=== PATIENT | male | born 1990 | race Caucasian/White ===

== ENCOUNTER 2016-12-13 15:56 | Emergency (ER) | payer OTHER ==
[~2016-12-13] VITALS: Ht 180.3 cm; Wt 70.3 kg
[~2016-12-13 15:56] MED LIST: BACTROBAN15 GM TOP; VIBRAMYCIN100 MG PO
--- NOTE | 2016-12-13 17:01 | ED GENERAL ADULT ---
History of Present Illness General Chief Complaint: Psychiatric Related Complaint Stated Complaint: PER PT I NEED A FULL WORKUP, AND PSYCH EVAL Source: patient Exam Limitations: poor historian Vital Signs & Intake/Output Vital Signs & Intake/Output Vital Signs Date Time Temp Pulse Resp B/P Pulse O2 O2 Flow FiO2 Ox Delivery Rate 12/13 2039 98.4 80 16 118/72 98 Room Air 12/13 1921 Room Air 12/13 1845 98.5 76 16 120/80 98 Room Air 12/13 1612 97.9 85 18 111/69 98 Room Air ED Intake and Output 12/14 0000 12/13 1200 Intake Total 200 Output Total Balance 200 Intake, Oral 200 Patient 155 lb Weight Allergies Coded Allergies: No Known Allergies (03/20/16) Triage Note: PRESENTS TO ED REQUESTING PSYCHIATRIC EVALAUTION DUE TO BIPOLAR DISORDER. REPORTS NON COMPLIANCE WITH MEDICATIONS. NO SPECIFIC SYMPTOMALOGY OFFERED DESPITE ASKING HIM SEVERAL TIMES. DENIED SI/HI. Triage Nurses Notes Reviewed? yes Onset: Abrupt Duration: day(s): Timing: recent history HPI: 12/13/16 26-year-old man presents to the emergency department for exacerbation of bipolar disorder. The patient states that he has history of bipolar disorder and has been off his medications. He also has generalized body aches and has been walking long distances. He denies suicidal ideation. He does admit to memory lapses. The onset of the symptoms were abrupt, the duration is unknown, the severity is significant as his symptoms required him to come to the emergency department for care. (KETAN HUANG DO) Past History Travel History Traveled to [place] past 21 day No Medical History Any Pertinent Medical History? see below for history Psychiatric: anxiety, bipolar disease Surgical History Surgical History: non-contributory Psychosocial History What is your primary language German Tobacco Use: Never used Family History Hx Contributory? No (KETAN HUANG DO) Review of Systems Review of Systems Constitutional: Denies: fever. EENTM: Reports: no symptoms. Respiratory: Reports: no symptoms. Cardiovascular: Reports: no symptoms. GI: Reports: no symptoms. Genitourinary: Reports: no symptoms. Musculoskeletal: Reports: see HPI. Skin: Denies: see HPI. Neurological/Psychological: Reports: anxiety. Hematologic/Endocrine: Denies: bruising (LEGS). (KETAN HUANG DO) Physical Exam Physical Exam General Appearance: alert, awake, anxious, moderate distress Head: atraumatic, normal appearance Eyes: Bilateral: normal appearance, PERRL, EOMI. Ears, Nose, Throat: normal pharynx, normal ENT inspection Neck: normal inspection, supple Respiratory: normal breath sounds, chest non-tender, no respiratory distress Cardiovascular: regular rate/rhythm Peripheral Pulses: 4+ radial (R), 4+ radial (L) Gastrointestinal: non-tender Back: normal range of motion Extremities: normal range of motion Neurologic/Psych: no motor/sensory deficits, awake, alert, oriented x 3 Skin: intact, normal color, warm/dry, ecchymosis (LEGS) Core Measures ACS in differential dx? No CVA/TIA Diagnosis: No Severe Sepsis Present: No Septic Shock Present: No (KETAN HUANG DO) Progress Differential Diagnoses I considered the following diagnoses in my evaluation of the patient: [ Laceration of bipolar disorder, substance abuse, alcohol intoxication, cocaine abuse] Plan of Care: Labs were sent and a sitter was ordered. Crisis consultation was requested. The patient was signed out to Dr. Jonas at 7 PM Initial ED EKG: none (KETAN HUANG DO) Comments: 12/13/162229: Patient is awake alert and oriented 3. Patient is calm and cooperative. Patient states that he wants to go home. Patient is not suicidal or homicidal. Patient states that he has just been feeling manic and that he usually does heroin after using cocaine because the parent Marcos come down from the cocaine however when he used heroin last time it did not help. Patient denies any hallucinations. Patient does not have pressured speech. Patient lives with his mother and his stepfather. Patient is going to call his mother to come in. If his mother has no concerns for his safety as well and she feels comfortable taking him home and the patient will be discharged. Mother is at his bedside and has no concerns about taking him tonight. (NALINI JONAS MD) Departure Departure Condition: Stable Clinical Impression Primary Impression: Bipolar disorder Referrals: UNKNOWN (PCP/Family) Departure Forms: Customer Survey General Discharge Information (KETAN HUANG DO) Departure Disposition: HOME OR SELF CARE Additional Instructions: Return if symptoms worsen or for any concerns. (NALINI JONAS MD) Critical Care Note Critical Care Note Critical Care Time: 30-74 min (KETAN HUANG DO)
[2016-12-13 19:16] LABS: ABSOLUTE BASOPHIL COUNT 0.1 /CUMM (0.0-0.2); ABSOLUTE EOSINOPHIL COUNT 0.1 /CUMM (0.0-0.7); ABSOLUTE GRANULOCYTE CT 5.1 /CUMM (1.4-6.5); ABSOLUTE LYMPH COUNT 1.3 /CUMM (1.2-3.4); ABSOLUTE MONOCYTE COUNT 0.6 /CUMM (0.10-0.60); BASOPHIL % 0.8 % (0.0-2.0); EOSINOPHIL % 0.8 % (0-5); GRANULOCYTE % 71.3 % (42.2-75.2); HEMATOCRIT 42.5 % (42-52); MEAN CORPUSCULAR HGB 28.7 PG (27.0-31.0); MEAN CORPUSCULAR HGB CONC 33.3 G/DL (33.0-37.0); MEAN CORPUSCULAR VOLUME 86.3 FL (80.0-94.0); MEAN PLATELET VOLUME 7.5 FL (7.4-10.4); PLATELET COUNT 280 /CUMM (130-400); RBC DISTRIBUTION WIDTH 12.7 % (11.5-14.5); RED BLOOD CELL CT 4.93 /CUMM (4.70-6.10); WHITE BLOOD CELL COUNT 7.2 /CUMM (4.8-10.8)
[2016-12-13 20:40] VITALS: BP 118/72
== END 2016-12-13 23:46 ==
LOC: ERH 15:56
PROVIDERS: Emergency Medicine
DX: F31.9 Bipolar disorder, unspecified (principal)
CPT/HCPCS: 86618; 80307; G0480

== ENCOUNTER 2017-01-01 02:30 | Inpatient (IN) | payer OTHER ==
[~2017-01-01] VITALS: Ht 175.3 cm; Wt 64.9 kg
--- NOTE | 2017-01-01 02:42 | ED AMS/SEIZURE/WEAK/DIZZY ---
History of Present Illness General Chief Complaint: Psychiatric Related Complaint Stated Complaint: BIBA PSY EVALUATION Source: patient, EMS, police Exam Limitations: clinical condition Vital Signs & Intake/Output Vital Signs & Intake/Output Vital Signs Date Time Temp Pulse Resp B/P Pulse O2 O2 Flow FiO2 Ox Delivery Rate 01/01 1405 97.2 60 116/84 01/01 1355 97.2 60 114/84 01/01 1253 98.0 75 14 144/91 96 Room Air 01/01 0632 97.2 95 18 148/89 98 Room Air 01/01 0433 97.2 99 18 156/92 98 Room Air 01/01 0248 Room Air 01/01 0243 97.4 118 22 171/100 98 Room Air Allergies Coded Allergies: No Known Allergies (03/20/16) Triage Nurses Notes Reviewed? yes Onset: Gradual Duration: hour(s):, waxing and waning Timing: recent history Injury Environment: home Severity: moderate Modifying Factors: Improves With: rest. Associated Symptoms: agitation HPI: 26-year-old gentleman history of bipolar disorder, not presently taking any medications, presents with agitation, belligerence, and threatening behavior tonight. He was brought in by the police. Per the police, he had a verbal altercation with his mother. He "trashed" his entire room. He affirms that he had a conflict with his mother. He expresses dismay around his, "deadbeat dad in [place]." He notes that he feels his mother has been agitating him, and has been demanding. He shares that he inhaled 1 bag of heroin and also did cocaine tonight. He notes that he took psychiatric medications in the past but stopped, "because those medicines currently are creatively." He presently denies suicidality and homicidality or hallucinations. (JA WALLACE,CYRIL Dean) Reconcile Medications No Known Home Medications (SUMI WALLACE,NALINI Gil) Past History Travel History Traveled to [place] past 21 day No Medical History Any Pertinent Medical History? see below for history Psychiatric: anxiety, bipolar disease Surgical History Surgical History: non-contributory Psychosocial History What is your primary language Welsh Family History Hx Contributory? No (JA WALLACE,CYRIL Dean) Review of Systems Review of Systems Constitutional: Reports: no symptoms. EENTM: Reports: no symptoms. Respiratory: Reports: no symptoms. Cardiovascular: Reports: no symptoms. GI: Reports: no symptoms. Genitourinary: Reports: no symptoms. Musculoskeletal: Reports: no symptoms. Skin: Reports: no symptoms. Neurological/Psychological: Reports: no symptoms. Hematologic/Endocrine: Reports: no symptoms. Immunologic/Allergic: Reports: no symptoms. All Other Systems: Reviewed and Negative (JA WALLACE,CYRIL Dean) Physical Exam Physical Exam General Appearance: well developed/nourished, alert, awake, anxious, mild distress, thin Head: atraumatic, normal appearance Eyes: Bilateral: normal appearance. Ears, Nose, Throat: normal pharynx, normal ENT inspection Neck: normal inspection, supple, full range of motion Respiratory: normal breath sounds, chest non-tender, no respiratory distress, quiet respiration, lungs clear Cardiovascular: regular rate/rhythm Gastrointestinal: normal bowel sounds, soft, non-tender Back: normal inspection Extremities: normal range of motion Neurologic/Psych: no motor/sensory deficits, awake, alert, oriented x 3 Skin: intact, normal color, warm/dry Core Measures ACS in differential dx? No CVA/TIA Diagnosis: No Severe Sepsis Present: No Septic Shock Present: No (JA WALLACE,CYRIL Dean) Progress Differential Diagnosis: alcohol intoxication, drug intoxication, electrolyte imbalance, depression, anxiety, bipolar disorder Plan of Care: Orders Procedure Date/time Status THYROID STIMULATING HORMONE 01/02 0700 Active LIPID PANEL 01/02 0700 Active GLYCOSYLATED HGB 01/02 0700 Active CBC WITHOUT DIFFERENTIAL 01/02 0700 Active Regular Diet 01/01 L Active INPT Psych Sitter 01/01 1404 Active Vital Signs 01/01 1403 Active Inpt Psych Teach/Educate 01/01 1403 Active Nutritional Intake, Monitor 01/01 1403 Active Inpt Psych Auricular Acupunctu 01/01 1403 Active Admit to inpatient psych 01/01 1330 Active Patient Data - inpatient psych 01/01 0952 Active Admit to inpatient psych 01/01 0952 Active EKG 01/01 0952 Active Intake & Output 01/01 0335 Complete Continuous Observation Monitor 01/01 0243 Active URINE DRUG SCREEN FOR ER ONLY 01/01 0243 Complete ETHANOL 01/01 0243 Complete COMPREHENSIVE METABOLIC PANEL 01/01 0243 Complete CBC WITHOUT DIFFERENTIAL 01/01 0243 Complete ED CRISIS PSYCH CONSULT 01/01 0243 Active Vital Signs 01/01 UNK Complete Inpt Psych Opioid Withdrawal S 01/01 UNK Active Activity/Ambulation 01/01 UNK Complete Current Medications Sig/Tejal Start time Last Medication Dose Stop Time Status Admin Olanzapine 5 MG DAILY 01/02 1000 AC (ZYDIS (Orally disintegrating tabs)) Olanzapine 10 MG AT BEDTIME 01/01 2200 AC (ZYDIS (Orally disintegrating tabs)) Lorazepam 1 MG Q4P PRN 01/01 1315 AC (Ativan) Olanzapine 5 MG Q4 HRS NEEDED PRN 01/01 1315 AC (ZYDIS (Orally disintegrating tabs)) Clonidine 0.1 MG Q6PRN PRN 01/01 1000 AC (Catapres) Dicyclomine HCl 20 MG Q6PRN PRN 01/01 1000 AC (Bentyl) Hydroxyzine HCl 50 MG TID PRN 01/01 1000 AC (Atarax) Ibuprofen 600 MG Q6P PRN 01/01 1000 AC (Motrin) Loperamide HCl 2 MG Q6P PRN 01/01 1000 AC (Imodium) Trazodone HCl 50 MG AT BEDTIME NEED.. 01/01 1000 AC (Desyrel) Laboratory Tests 01/01/17 0520: Urine Opiates Screen > 4000.00 H, Methadone Screen < 40, Barbiturate Screen 73, Ur Phencyclidine Scrn < 6.00, Amphetamines Screen < 100, U Benzodiazepines Scrn < 85, Urine Cocaine Screen > 1000 H, Urine Cannabis Screen > 80.00 H 01/01/17 0308: Anion Gap 12, Estimated GFR > 60, BUN/Creatinine Ratio 11.0, Glucose 140 H, Calcium 9.7, Total Bilirubin 0.7, AST 44, ALT 39, Alkaline Phosphatase 107, Total Protein 7.8, Albumin 4.6, Globulin 3.2, Albumin/Globulin Ratio 1.4, CBC w Diff MAN DIFF ORDERED, RBC 5.10, MCV 84.6, MCH 28.5, RDW 11.8, MPV 7.2 L, Gran % 58.9, Lymphocytes % 32.9, Monocytes % 7.3, Eosinophils % 0.6, Basophils % 0.3, Absolute Granulocytes 6.5, Segmented Neutrophils 60, Absolute Lymphocytes 3.7 H , Lymphocytes 35, Monocytes 5, Absolute Monocytes 0.8 H, Absolute Eosinophils 0.1, Absolute Basophils 0, Platelet Estimate ADEQUATE, Normocytic RBCs VERIFIED, Normochromic RBCs VERIFIED, PUBS MCHC 33.7, Serum Alcohol < 10.0 Initial ED EKG: none Hand-Off Endorsed To: NALINI JONAS MD Endorsed Time: 0700 Pending: consult (JA WALLACE,CYRIL Dean) Comments: PT SEEN AND EVALUATED BY CRISIS. PT TO BE ADMITTED TO [facility]. PT VERY AGITATED. PT MEDICATED WITH IM ZYPREXA AND IM ATIVAN. (NALINI JONAS MD) Departure Departure Disposition: STILL A PATIENT Condition: Stable Clinical Impression Primary Impression: Bipolar disorder Secondary Impressions: Polysubstance abuse Referrals: UNKNOWN (PCP/Family) Departure Forms: Customer Survey General Discharge Information (JA WALLACE,CYRIL Dean) Departure Prescriptions: Current Visit Scripts No Known Home Medications Psych Admission Note Psychiatric Admission: I have seen and evaluated ROLANDO SHEETS. I have also reviewed all the pertinent lab results and diagnostic results. ROLANDO SHEETS will be admitted to our inpatient Psychiatric unit for treatment and care. (NALINI JONAS MD)
[2017-01-01 03:20] LABS: ABSOLUTE BASOPHIL COUNT 0 /CUMM (0.0-0.2); ABSOLUTE EOSINOPHIL COUNT 0.1 /CUMM (0.0-0.7); ABSOLUTE GRANULOCYTE CT 6.5 /CUMM (1.4-6.5); ABSOLUTE LYMPH COUNT 3.7 /CUMM (1.2-3.4); ABSOLUTE MONOCYTE COUNT 0.8 /CUMM (0.10-0.60); BASOPHIL % 0.3 % (0.0-2.0); EOSINOPHIL % 0.6 % (0-5); GRANULOCYTE % 58.9 % (42.2-75.2); HEMATOCRIT 43.2 % (42-52); MEAN CORPUSCULAR HGB 28.5 PG (27.0-31.0); MEAN CORPUSCULAR HGB CONC 33.7 G/DL (33.0-37.0); MEAN CORPUSCULAR VOLUME 84.6 FL (80.0-94.0); MEAN PLATELET VOLUME 7.2 FL (7.4-10.4); PLATELET COUNT 360 /CUMM (130-400); RBC DISTRIBUTION WIDTH 11.8 % (11.5-14.5); WHITE BLOOD CELL COUNT 11.1 /CUMM (4.8-10.8)
--- NOTE | 2017-01-01 10:32 | ED PSYCH CRISIS CONSULTATION ---
Crisis Consult Basic Assessment Date of Consult: 01/01/17 Responsible Person/Accompanied By: FRED on PEER Insurance Authorization: Insurance #1: Insurance name: EJ LUCAS Phone number: Policy number: [id number] Group number: Authorization number: ED Provider: Patient's ED Provider: CYRIL PERES MD Primary Care Physician: Patient's PCP: UNKNOWN PCP's Phone Number: Current Psychiatrist: Patient denies, states he only sees his PCP Dr. Jason Uriarte Chief Complaint: Psychiatric Related Complaint Patient's Quote: "Not me, my mom comes up with lies." Present Illness: The patient is a 26 year old, single, male brought to the ED, by ambulance, on a PEER. The patient presents anxious, fidgety with extreme mood lability, ranging from laughing, to crying, to screaming, to staring blankly. The patient has a long history of mental health issues and subsequent treatment, however is not currently in any treatment. He states that he has not been compliant with medications or treatment because "they don't work and they make it feel like he is ." He states that when he takes medications, that he is not able to "be creative." He endorses, paranoia, visual hallucinations, auditory hallucinations, and ideas of reference. He states that all of these things "are gifts from God," and that they were given to him. He does not find his symptoms to be worrisome and in fact states "he recently made friends with the demons that he sees. He denies any current or history of suicidal ideations. He denies any homicidal ideations, however then states that he wants to kill his biological father, and "if it were legal in [place]," that he would do it. He resides with his mother and is currently not working. He was preoccupied with that amount of time he has been sleeping while here, as he likes it better when he does not sleep, noting "it gives him more energy." He routinely uses Cocaine, Heroin and Cannabis, however does not see this to be abuse. He states that he does not need any treatment and he does not want to be in the hospital. He would like to go home and continue to experience his hallucinations. Riccardo spoke with his mother, Vika Combs ([phone]), who states that she called the police last night because he was out of control. She notes that he was "screaming and barricading himself in his room. Vika states that he has been paranoid and responding to internal stimuli. She notes that he talks about the "cars lining up outside" and that "they are talking to him through the speakers." She notes that he has been off of his medications, but she does not know for how long. Vika is not clear on the trigger for his symptoms, however did note that the patient has been having issues with his biological father. Vika elaborated on the mental health issues that are prominent on both sides of the family. She does believe that he needs to be hospitalized at his time and would like him to go to [facility]. Patient's Address: [address] [place] [address] Other Phone Number: Who Do You Live With? Mother (and her ex-) Family/Informants Interviewed: Mother- Vika Todd- [phone] Allergies - Coded Allergies: No Known Allergies (03/20/16) Current Medications - No Known Home Medications Laboratory Results: Laboratory Tests 01/01/17 0520: Urine Opiates Screen > 4000.00 H, Methadone Screen < 40, Barbiturate Screen 73, Ur Phencyclidine Scrn < 6.00, Amphetamines Screen < 100, U Benzodiazepines Scrn < 85, Urine Cocaine Screen > 1000 H, Urine Cannabis Screen > 80.00 H 01/01/17 0308: Anion Gap 12, Estimated GFR > 60, BUN/Creatinine Ratio 11.0, Glucose 140 H, Calcium 9.7, Total Bilirubin 0.7, AST 44, ALT 39, Alkaline Phosphatase 107, Total Protein 7.8, Albumin 4.6, Globulin 3.2, Albumin/Globulin Ratio 1.4, CBC w Diff MAN DIFF ORDERED, RBC 5.10, MCV 84.6, MCH 28.5, RDW 11.8, MPV 7.2 L, Gran % 58.9, Lymphocytes % 32.9, Monocytes % 7.3, Eosinophils % 0.6, Basophils % 0.3, Absolute Granulocytes 6.5, Segmented Neutrophils 60, Absolute Lymphocytes 3.7 H , Lymphocytes 35, Monocytes 5, Absolute Monocytes 0.8 H, Absolute Eosinophils 0.1, Absolute Basophils 0, Platelet Estimate ADEQUATE, Normocytic RBCs VERIFIED, Normochromic RBCs VERIFIED, PUBS MCHC 33.7, Serum Alcohol < 10.0 Past History Past Medical History Psychiatric: anxiety, bipolar disease Past Surgical History Surgical History: non-contributory Psychosocial History Strengths/Capabilities: The patient has a supportive mother and stable living. Physical Limitations (Interventions): During the evaluation, the patient was complaining of muscle cramps, Dr. Chu was made aware. Psychiatric Treatment History Psych Treatment Psychiatric Treatment Yes Inpatient Treatment Yes Outpatient Treatment Yes Location of Treatment [facility]. Reason for Treatment Bipolar and psychosis Dates of Treatment Unclear- per report of his mother- thepatient did not elaborate. Response to Treatment The patient states that he did not like treatment or medications, as "he is not able to be as creative." He states he has tried multiple medications and that nothing has worked. Diagnosis by History: Per mother " paranoid schizophrenic, Bipolar and PTSD" Substance Use/Abuse History Drug Use/Abuse 1 Substances Used/Abused Yes Substance Used/Abused Marijuana First Use 15 years old Last Used "last night" How much used/taken Unclear How often Reports daily use For how long Unclear Route of use inhalation Drug Use/Abuse 2 Substances Used/Abused Yes Substance Used/Abused Heroin First Use 21 years old Last Used "Last night" How much used/taken "1/2 a bag" How often "every two or three weeks" For how long Unclear Route of use Unclear Drug Use/Abuse 3 Substances Used/Abused Yes Substance Used/Abused Cocaine First Use 19 years old Last Used "last night" How much used/taken unclear How often "its random" For how long Unclear Route of use Inhalation Substance Abuse Treatment Substance Abuse Treatment Past Substance Abuse [place] No (Pt. denies) Inpatient Treatment No Outpatient Treatment No Location of Treatment N/A Reason for Treatment N/A Dates of Treatment N/A Response to Treatment N/A Comments: The patient states that he has attended [facility] in the past, however denies curently attending. Current Mental Status Mental Status Orientation: Person, Place, Situation Affect: Anxious, Angry, Labile Speech: WNL (Labile, yelling at times) Neuro-vegetative: Sleep Disturbance Appearance Appearance- Dress/Hygiene: The patient was moving around the room, in hospital scrubs, neat, clean and well kempt, wearing glasses. Behaviors Thought Process: Flight of Ideas, Irrational Thought Content: Auditory Hallucinations, Delusions, Entitled, Grandiose, Paranoid, Adventist, Visual Hallucinations Memory: WNL Insight: Poor SI/HI Risk Assessment Past Suicidal Ideation/Attempts No Current Suicidal Ideation/Att No Past Homicidal Ideation/Att: No Current Homicidal Ideation/Attempts Yes Degree of Intent: The patient states that "he would kill his biological father, if it were legal in [place]." Danger To: Others Gravely Disabled: Lack of Insight, Poor Impulse Control, Poor Judgment, Experiencing symptoms of Psychosis. Risk Factors: high anxiety/distress, SA/MH hospitalized, substance abuse, poor impulse control, male, Medication and treatment non-compliant Lethality Ratin PTSD Checklist PTSD Done? 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 R/O Bipolar Disorder with Psychotic features. Medical: Unremarkable Stressors: Financial, unemployment, family issues Current GAF: 25 Comments: N/A Departure Disposition Psych Medical Clearance Date: 01/01/17 Medically Cleared at: 0800 Time Started: 0815 Time Ended: 929 Psychiatrist Consulted: Dr. Rodriges Date Disposition Established: 01/01/17 Time Disposition Established: 929 Plan for Disposition - Modality: Inpatient Psychiatry Facility: [facility] Contact: N/A Telephone: N/A Rationale for Disposition: The patient presents with auditory hallucinations, visual hallucinations, ideas of reference, mood lability, ideas of grandeur, homicidal ideations and polysubstance abuse. Case discussed with Dr. Rodriges and she finds the patient to be gravely disabled and will admit him to [facility] on a PEC. Type of IP Admission: PEC Additional Instructions: N/A Referrals UNKNOWN (PCP/Family)
--- NOTE | 2017-01-01 10:48 | IP CRISIS DIAG ASSESS PSYCH ---
Diagnostic Assessment Basic Assessment Insurance Authorization: Insurance #1: Insurance name: EJ LUCAS Phone number: Policy number: [id number] Group number: Authorization number: Authorization was requested through online [facility] portal and is listed as "pended." Pended Authorization # [id number] Client Authorization # [id number] Type of request INITIAL Primary Care Physician: Patient's PCP: UNKNOWN PCP's Phone Number: Patient's Quote: "Not me, my mom comes up with lies." Present Illness: The patient is a 26 year old, single, male brought to the ED, by ambulance, on a PEER. The patient presents anxious, fidgety with extreme mood lability, ranging from laughing, to crying, to screaming, to staring blankly. The patient has a long history of mental health issues and subsequent treatment, however is not currently in any treatment. He states that he has not been compliant with medications or treatment because "they don't work and they make it feel like he is ." He states that when he takes medications, that he is not able to "be creative." He endorses, paranoia, visual hallucinations, auditory hallucinations, and ideas of reference. He states that all of these things "are gifts from God," and that they were given to him. He does not find his symptoms to be worrisome and in fact states "he recently made friends with the demons that he sees. He denies any current or history of suicidal ideations. He denies any homicidal ideations, however then states that he wants to kill his biological father, and "if it were legal in [place]," that he would do it. He resides with his mother and is currently not working. He was preoccupied with that amount of time he has been sleeping while here, as he likes it better when he does not sleep, noting "it gives him more energy." He routinely uses Cocaine, Heroin and Cannabis, however does not see this to be abuse. He states that he does not need any treatment and he does not want to be in the hospital. He would like to go home and continue to experience his hallucinations. Riccardo spoke with his mother, Vika Combs ([phone]), who states that she called the police last night because he was out of control. She notes that he was "screaming and barricading himself in his room. Vika states that he has been paranoid and responding to internal stimuli. She notes that he talks about the "cars lining up outside" and that "they are talking to him through the speakers." She notes that he has been off of his medications, but she does not know for how long. Vika is not clear on the trigger for his symptoms, however did note that the patient has been having issues with his biological father. Vika elaborated on the mental health issues that are prominent on both sides of the family. She does believe that he needs to be hospitalized at his time and would like him to go to [facility]. Patient's Address: [address] [place] [address] Other Phone Number: Who Do You Live With? Mother (and her ex-) Feel Safe Where You Live? Yes Feel Safe in Your Relationship Yes (Denies being in a relationship) Marital Status: single Do You Have Children? No Primary Language? Brazilian Family/Informants Interviewed: Mother- Vika Combs- [phone] Allergies - Coded Allergies: No Known Allergies (03/20/16) Current Medications - No Known Home Medications Consequences of Psych Med Use: The patient reports that when he takes his medications, that he is not able to be as creative, as he would like to be. He states that no medications have worked for him and that "he feels ," when he takes them. Comment: N/A Lab Results: Laboratory Tests 01/01/17 0520: Urine Opiates Screen > 4000.00 H, Methadone Screen < 40, Barbiturate Screen 73, Ur Phencyclidine Scrn < 6.00, Amphetamines Screen < 100, U Benzodiazepines Scrn < 85, Urine Cocaine Screen > 1000 H, Urine Cannabis Screen > 80.00 H 01/01/17 0308: Anion Gap 12, Estimated GFR > 60, BUN/Creatinine Ratio 11.0, Glucose 140 H, Calcium 9.7, Total Bilirubin 0.7, AST 44, ALT 39, Alkaline Phosphatase 107, Total Protein 7.8, Albumin 4.6, Globulin 3.2, Albumin/Globulin Ratio 1.4, CBC w Diff MAN DIFF ORDERED, RBC 5.10, MCV 84.6, MCH 28.5, RDW 11.8, MPV 7.2 L, Gran % 58.9, Lymphocytes % 32.9, Monocytes % 7.3, Eosinophils % 0.6, Basophils % 0.3, Absolute Granulocytes 6.5, Segmented Neutrophils 60, Absolute Lymphocytes 3.7 H , Lymphocytes 35, Monocytes 5, Absolute Monocytes 0.8 H, Absolute Eosinophils 0.1, Absolute Basophils 0, Platelet Estimate ADEQUATE, Normocytic RBCs VERIFIED, Normochromic RBCs VERIFIED, PUBS MCHC 33.7, Serum Alcohol < 10.0 Toxicology Screen Completed? Yes Results: positive (Cannabis, Cocaine and Opiates) Symptoms of Use: N /A Past History Past Medical History Medical History: None/Denies Abuse/Trauma History Trauma History/Current Trauma: The patient was unable to particpate secondary to current symptoms and lability. Abuse/Trauma Treatment: Unknown Legal History Current Legal Status: The patient states that he has a current court date, next month. Have you ever been arrested? Yes Number of Arrests: [address] Dates: The patient states that he has an upcoming court date next month. 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 Physical Limitations (Interventions): During the evaluation, the patient was complaining of muscle cramps, Dr. Chu was made aware. Psychiatric Treatment History Psych Treatment Psychiatric Treatment Yes Inpatient Treatment Yes Outpatient Treatment Yes Location of Treatment [facility]. Reason for Treatment Bipolar and psychosis Dates of Treatment Unclear- per report of his mother- thepatient did not elaborate. Response to Treatment The patient states that he did not like treatment or medications, as "he is not able to be as creative." He states he has tried multiple medications and that nothing has worked. Diagnosis by History: Per mother " paranoid schizophrenic, Bipolar and PTSD" Risk Factors: high anxiety/distress, SA/MH hospitalized, substance abuse, poor impulse control, male, Medication and treatment non-compliant Substance Use/Abuse History Drug Use/Abuse minimum 12mo Hx 1 Substances Used/Abused Yes Substance Used/Abused Cocaine First Use 19 years old Last Used "last night" How much used/taken unclear How often "its random" For how long Unclear Route of use Inhalation Drug Use/Abuse minimum 12mo Hx 2 Substances Used/Abused Yes Substance Used/Abused Heroin First Use 21 years old Last Used "last night" How much used/taken "1/2 a bag" How often "every two or three weeks" For how long Unclear Route of use Unclear Drug Use/Abuse minimum 12mo Hx 3 Substances Used/Abused Yes Substance Used/Abused Marijuana First Use 15 years old Last Used "last night" How much used/taken Unclear How often Reports daily use For how long Unclear Route of use Inhalation Substance Abuse Treatment Substance Abuse Treatment Past Substance Abuse [place] No (Pt. denies) Inpatient Treatment No Outpatient Treatment No Location of Treatment N/A Reason for Treatment N/A Dates of Treatment N/A Response to Treatment N/A Comments: N/A Sexual History Sexually Active No Sexual Orientation Heterosexual Sexual Concerns: None noted Education History Highest Level of Education: high school/GED Preferred Learning Style: Unclear Current Mental Status Mental Status Orientation: Person, Place, Situation Affect: Anxious, Angry, Labile Speech: WNL (Labile, yelling at times) Neuro-vegetative: Sleep Disturbance Appearance Appearance- Dress/Hygiene: The patient was moving around the room, in hospital scrubs, neat, clean and well kempt, wearing glasses. Behaviors Thought Process: Flight of Ideas, Irrational Thought Content: Auditory Hallucinations, Delusions, Entitled, Grandiose, Paranoid, Yazdanism, Visual Hallucinations Memory: WNL Insight: Poor SI/HI Risk Assessment - Minimum 6mo History- Past Suicidal Ideation/Attempts No Current Suicidal Ideation/Att No Past Homicidal Ideation/Att: No Current Homicidal Ideation/Attempts Yes Degree of Intent: The patient states that "he would kill his biological father, if it were legal in [place]." Danger To: Others Gravely Disabled: Lack of Insight, Poor Impulse Control, Poor Judgment, Experiencing symptoms of Psychosis. Risk Factors: high anxiety/distress, SA/MH hospitalized, substance abuse, poor impulse control, male, Medication and treatment non-compliant Lethality Ratin Needs/Init TX Plan/Goals: Admit to inpatient for safety and to stabilize symptoms. Attend individual, group and family therapy. Participate in a medication evaluation. Work with treatment team to transition to care in the community. AUDIT-C Questionnaire: AUDIT-C Questionnaire: Response Value ETOH use in the past year Never 0 # drinks typical/day Doesn't Drink 0 6 or > drinks per occasion Never 0 Total 0 DSM5/PS Stressors/Medical Prob Diagnosis' (DSM 5, Stressors, Medical): F29 Unspecified Schizophrenia Spectrum and other Psychotic Disorder. R/O Bipolar Disorder with Psychotic features. Medical: Unremarkable Stressors: Financial, unemployment, family issues Current GAF: 25 Comments: N/A
--- NOTE | 2017-01-01 11:47 | SOCIAL WORKER SOCIAL HX PSYCH ---
Social History Basic Assessment Insurance Authorization: Insurance #1: Insurance name: EJ LUCAS Phone number: Policy number: [id number] Group number: Authorization number: Curr Source of Income/Entitlements: "[facility] Man and the state" Primary Care Physician: Patient's PCP: UNKNOWN PCP's Phone Number: Present Problem: The patient is a 26 year old, single, male brought to the ED, by ambulance, on a PEER. The patient presents anxious, fidgety with extreme mood lability, ranging from laughing, to crying, to screaming, to staring blankly. The patient has a long history of mental health issues and subsequent treatment, however is not currently in any treatment. He states that he has not been compliant with medications or treatment because "they don't work and they make it feel like he is ." He states that when he takes medications, that he is not able to "be creative." He endorses, paranoia, visual hallucinations, auditory hallucinations, and ideas of reference. He states that all of these things "are gifts from God," and that they were given to him. He does not find his symptoms to be worrisome and in fact states "he recently made friends with the demons that he sees. He denies any current or history of suicidal ideations. He denies any homicidal ideations, however then states that he wants to kill his biological father, and "if it were legal in [place]," that he would do it. He resides with his mother and is currently not working. He was preoccupied with that amount of time he has been sleeping while here, as he likes it better when he does not sleep, noting "it gives him more energy." He routinely uses Cocaine, Heroin and Cannabis, however does not see this to be abuse. He states that he does not need any treatment and he does not want to be in the hospital. He would like to go home and continue to experience his hallucinations. Riccardo spoke with his mother, Vika Combs ([phone]), who states that she called the police last night because he was out of control. She notes that he was "screaming and barricading himself in his room. Vika states that he has been paranoid and responding to internal stimuli. She notes that he talks about the "cars lining up outside" and that "they are talking to him through the speakers." She notes that he has been off of his medications, but she does not know for how long. Vika is not clear on the trigger for his symptoms, however did note that the patient has been having issues with his biological father. Vika elaborated on the mental health issues that are prominent on both sides of the family. She does believe that he needs to be hospitalized at his time and would like him to go to [facility]. Primary Language? Turkish Living Situation Rents or Owns Home? rents Other Living Arrangement: He lives with his mother and her ex- in an apartment. Residential Care/Treatment Fac N/A Feel Safe Where You Are Living Yes Feel Safe in Relationships? Yes (Denies being in a relationship) Comments: N/A Allergies - Coded Allergies: No Known Allergies (03/20/16) Current Medications - No Known Home Medications Consequences of Psych Med Use: N/A Comments: N/A Past History Past Medical History Psychiatric: anxiety, bipolar disease Past Surgical History Surgical History: non-contributory /Family History Place/Country of Origin: [place] Childhood Family Constellation: The patients was primarily raised by his mother, she left his biogical father in [place]. Per his mother she lived with his grandmother, until she met her ex- , and then they lived with him. Of note, she is , however the 3 of them still reside togther. Primary Childhood Caretakers: mother Family Life During Childhood: "awesome" DCF Involvement? No Mother's Age (Current/): 0 (Unknown) Relationship w/Mother: " I love my mom, she is my best friend." Father's Age (Current/): 0 (Unknown) Relationship w/Father: " I want to kill him and I would if it were legal in [place]." Any Sibling(s)? Yes ("1 half brother") Sibling's Gender(s)/Age(s): male Sibling 1: Relationship w/Sibling(s): The patient states that he does not have a relationship with his half brother. Relationship w/Friends: The patient states that he only has aquaintances. Family Psych/Sub Abuse/Add Hx: Per mother, there are mental health issues on both sides of the family. Other Comments: N/A Abuse/Trauma History Trauma History/Current Trauma: The patient was unable to particpate secondary to current symptoms and lability. Abuse/Trauma Treatment: Unknown Legal History Legal Guardian/Address/Phone: Self Current Legal Status: Pending court date Pending Court Dates: Pending court date next month for " Heroin charge" Have you ever been arrested Yes Number of Arrests: 5 Hx of Juvenile Legal Charges? No (Unknown) Hx of Adult Legal Charges? Yes If Yes: The patient reports being arrested 5 times, however does not elaborate on for what, except to say his most recent charge is related to Heroin. List/Date Most Recent Lgl Chgs: He states that his most recent arrest, was for Heroin. Chgs/Dts/Incarcerations/Sentnc The patient reports that he has been arrested 5 times. He does not elaborate on reasons for arrest, except to say his most recent arrest was Heroin related. 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 Weaknesses: The patient has limited insight into his mental health issues and his need for treatment. Physical Limitations (Interventions): During the evaluation, the patient was complaining of muscle cramps, Dr. Chu was made aware. Last Physical: Unknown History of Seizures? No (Pt. denies) History of Blackouts? No (Pt. denies) ADL Limitations: None noted Leon/Social/Peer Relations The patient states that he only has acquaintances. Meaningful Activities: "Go for a walk away from people." Childhood Mandaeism: no sikhism stated Current Druze Affiliation: no sikhism stated Is Spirituality Important to You? Unknown, however the patient did talk about his symptoms of pyschosis, "being a gift from God." Cultural/Ethnic Issues: None noted Are There Developmental Issues? No (Unknown) Milestones Achieved: Unknown Psychiatric Treatment History Psych Treatment Inpatient Treatment Yes Outpatient Treatment Yes Location of Treatment [facility]. Reason for Treatment Bipolar and psychosis Dates of Treatment Unclear- per report of his mother- thepatient did not elaborate. Response to Treatment The patient states that he did not like treatment or medications, as "he is not able to be as creative." He states he has tried multiple medications and that nothing has worked. Current Entertainer Or Variety Artist: None Treatment of Prior Episodes: Per mother he has a history of being admitted to [facility], [facility]. Diagnosis: Per mother " paranoid schizophrenic, Bipolar and PTSD" Psychodynamic Issues: Per his mother, there are multiple family members that also struggle with mental health issues. Risk Factors: high anxiety/distress, SA/MH hospitalized, substance abuse, poor impulse control, male, Medication and treatment non-compliant Substance Use/Abuse History Drug Use/Abuse 1 Substance Used/Abused Marijuana First Use 15 years old Last Used "last night" How much used/taken Unclear How often Reports daily use For how long Unclear Route of use Inhalation Drug Use/Abuse 2 Substance Used/Abused Heroin First Use 21 years old Last Used "last night" How much used/taken "1/2 a bag" How often "every two or three weeks" For how long Unknown Route of use Unknown Drug Use/Abuse 3 Substance Used/Abused Crack Cocaine First Use 19 years old Last Used "last night" How much used/taken Unclear How often "it's random" For how long Unclear Route of use Unclear Have Had Periods of Sobriety? No Explain: The patient reports that he has used marijuna daily "for his whole life." Relapse History? Yes Explain: The patient reports continuous use and does not believe that it is an issue. Have You Ever Attended AA? Yes Do You Attend AA Currently? No Do You Have a Sponsor? No Other Community Resources Used: None noted Symptoms of Use: N /A Substance Abuse Treatment Substance Abuse Treatment Inpatient Treatment No Outpatient Treatment No Location of Treatment N/A Reason for Treatment N/A Dates of Treatment N/A Response to Treatment N/A Comments: N/A Sexual History Sexually Active No Sexual Orientation Heterosexual Sexual Concerns: None noted Education History Highest Level of Education: high school/GED Highest Grade Completed: Obtained his GED Vocational Year Completed: N/A Number of College Years: 0 College Degree/Major: N/A Other Degree(s): N/A Preferred Learning Style: Unclear HX of Learning Difficulties: None reported Barriers to Learning: None reported Special Communication Needs: None reported Employment History Employment Unemployed Not in Labor Force: Looking for employment Vocation/Occupational Hx: The patient does not recall- "maybe something with driving" No. of Jobs in Last 5 Years: 0 (Unclear) Attendance: Unclear Comments: The patient states that he does not remember what his last job was. He states that maybe he would like to be a Chiropracter or a Massage Therapist. History Have You Been in The ? No (Pt. denies) If Yes, Explain: N/A Type of Discharge: N/A Date of Discharge: N/A Current Mental Status Mental Status Orientation: Person, Place, Situation Affect: Anxious, Angry, Labile Speech: WNL (Labile, yelling at times) Neuro-vegetative: Sleep Disturbance Appearance Appearance- Dress/Hygiene: The patient was moving around the room, in hospital scrubs, neat, clean and well kempt, wearing glasses. Behaviors Thought Process: Flight of Ideas, Irrational Thought Content: Auditory Hallucinations, Delusions, Entitled, Grandiose, Paranoid, Druze, Visual Hallucinations Memory: WNL Insight: Poor SI/HI Risk Assessment Past Suicidal Ideation/Attempts No Current Suicidal Ideation/Att No Past Homicidal Ideation/Att: No Current Homicidal Ideation/Attempts Yes Degree of Intent: The patient states that "he would kill his biological father, if it were legal in [place]." Danger To: Others Gravely Disabled: Lack of Insight, Poor Impulse Control, Poor Judgment, Experiencing symptoms of Psychosis. Risk Factors: High Anxiety/Distress, SA/MH Hospitalization(s), Male, Poor impulse control, Substance Abuse Lethality Ratin - Conclusion and Recommendations for treatment - and discharge planning Summary: The patient presents with auditory hallucinations, visual hallucinations, ideas of reference, mood lability, ideas of grandeur, homicidal ideations and polysubstance abuse. Case discussed with Dr. Rodriges and she finds the patient to be gravely disabled and will admit him to [facility] on a PEC.
[2017-01-01 13:55] VITALS: BP 114/84
[2017-01-01 14:05] VITALS: BP 116/84
--- NOTE | 2017-01-01 14:06 | Event Note ---
Event Note Event Note: Pt arrived at [facility] this afternoon. He was quiet with no behavioral distrubance. Uncooperative, pretending to sleep, when asked questions for assessment. Sitting with head down on chair. Declined offer to be moved to room to lay in bed. MSE Appears younger stated age. Unooperative behavior, no eye contact. Pt declined to speak. + psychomotor retardation, no posturing. Mood "OK" Affect irritable, constricted, inappropriate, non-liable. Unable to assess thought process. Did not express SI or HI. Does not appear to be responding to internal stimuli. Denies AVHs, paranoia, or delusions. I/J: limited Zyprexa 5mg daily and 10mg nightly ordered Zyprexa and ativan PRNs ordered as very agitated earlier in the day Trazodone and Hydroxyzine PRNs ordered CBC ordered as elevated WBC on last blooddraw, A1C, Lipids ordered for AM as pt will be on antipsychotic medications. EKG ordered as well
[2017-01-02 06:32] LABS: ABSOLUTE BASOPHIL COUNT 0 /CUMM (0.0-0.2); ABSOLUTE EOSINOPHIL COUNT 0.1 /CUMM (0.0-0.7); ABSOLUTE GRANULOCYTE CT 6.6 /CUMM (1.4-6.5); ABSOLUTE LYMPH COUNT 1.8 /CUMM (1.2-3.4); ABSOLUTE MONOCYTE COUNT 0.5 /CUMM (0.10-0.60); BASOPHIL % 0.3 % (0.0-2.0); EOSINOPHIL % 1.1 % (0-5); GRANULOCYTE % 72.5 % (42.2-75.2); MEAN CORPUSCULAR HGB 28.5 PG (27.0-31.0); MEAN CORPUSCULAR HGB CONC 33.2 G/DL (33.0-37.0); MEAN PLATELET VOLUME 7.4 FL (7.4-10.4); PLATELET COUNT 356 /CUMM (130-400); RBC DISTRIBUTION WIDTH 12.4 % (11.5-14.5); RED BLOOD CELL CT 5.82 /CUMM (4.70-6.10); WHITE BLOOD CELL COUNT 9.1 /CUMM (4.8-10.8)
[2017-01-02 06:37] LABS: HEMATOCRIT 50.1 % (42-52)
[2017-01-02 07:46] VITALS: BP 126/77
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
--- NOTE | 2017-01-02 11:29 | Cons- Medical ---
General Information and HPI Consulting Request Date of Consult: 01/01/17 Requested By: BIENVENIDO ANNE MD Reason for Consult: Medical H & P Source of Information: patient, old records History of Present Illness: 26-year-old male with past medical history of polysubstance abuse and psychiatric disorder who is here with psychiatric complaints. He is not very cooperative on exam. He responds with monosyllables and very little information. He denies any active medical problems. He denies any active medical complaints. No chest pain no shortness of breath no cough no sputum no complaints. He says that he uses drugs inhalation daily and intranasally and has never used them intravenously. He is open to the idea of testing for HIV and hepatitis. Allergies/Medications Allergies: Coded Allergies: No Known Allergies (03/20/16) Home Med List: Gabapentin 300 MG CAPSULE 300 MG PO TID ANXIETY Hydroxyzine HCl 50 MG TABLET 50 MG PO TID PRN ANXIETY Nicotine (Nicotine Patch) 21 MG/24 HOUR PATCH.TD24 21 MG TOP DAILY SMOKING CESSATION Olanzapine (Zyprexa Zydis) 10 MG TAB.RAPDIS 10 MG PO AT BEDTIME CLEAR THOUGHTS Olanzapine (Zyprexa Zydis) 5 MG TAB.RAPDIS 5 MG PO DAILY CLEAR THOUGHTS Trazodone HCl 50 MG TABLET 50 MG PO AT BEDTIME PRN SLEEP Current Medications: Current Medications Sig/Tejal Start time Last Medication Dose Route Stop Time Status Admin Clonidine 0.1 MG Q6PRN PRN 01/01 1000 AC PO Dicyclomine HCl 20 MG Q6PRN PRN 01/01 1000 AC PO Gabapentin 300 MG Q8P PRN 01/02 1100 AC PO Hydroxyzine HCl 50 MG TID PRN 01/01 1000 AC PO Ibuprofen 600 MG Q6P PRN 01/01 1000 AC PO Loperamide HCl 2 MG Q6P PRN 01/01 1000 AC PO Lorazepam 1 MG Q4P PRN 01/01 1315 DC 01/02 PO 0626 Lorazepam 1 MG Q6-PRN PRN 01/01 1000 DC PO Nicotine 2 MG Q2P PRN 01/02 1115 AC PO Nicotine 21 MG DAILY 01/02 1106 AC TOP Olanzapine 5 MG DAILY 01/02 1000 AC 01/02 PO 0823 Olanzapine 10 MG AT BEDTIME 01/01 2200 AC PO Olanzapine 5 MG Q4 HRS NEEDED PRN 01/01 1315 AC PO Olanzapine 5 MG BID 01/01 1000 DC PO Olanzapine 5 MG BID PRN 01/01 1000 DC PO Trazodone HCl 50 MG AT BEDTIME NEED.. 01/01 1000 AC PO Review of Systems Review of Systems Constitutional: Denies: no symptoms, chills, diaphoresis, fever, malaise. Cardiovascular: Denies: chest pain, edema, orthopena. Respiratory: Denies: cough, hemoptysis, orthopnea. GI: Denies: abdominal pain, bloating, constipation. Genitourinary: Denies: discharge, dysuria, frequency. Musculoskeletal: Denies: back pain, joint pain. 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 Home Smoking Status: Current Everyday Smoker ETOH Use: denies use Illicit Drug Use: cocaine, heroin (Intranasal) Functional Ability ADLs Independent: dressing, eating, toileting, bathing. Ambulation: independent IADLs Independent: shopping, housework, finances, food prep, telephone. Employment History Employment: Unemployed Profession/Employer: The patient does not recall- "maybe something with driving " Exam & Diagnostic Data Last 24 Hrs of Vital Signs/I&O Vital Signs Date Time Temp Pulse Resp B/P Pulse O2 O2 Flow FiO2 Ox Delivery Rate 01/02 0746 97.0 108 126/77 01/01 1405 97.2 60 116/84 01/01 1355 97.2 60 114/01/01 1253 98.0 75 14 144/91 96 Room Air Physical Exam General Appearance: well developed/nourished, no apparent distress, alert, awake Head: atraumatic, normal appearance Eyes: Bilateral: PERRL, EOMI. Ears, Nose, Throat: normal pharynx, normal ENT inspection, hearing grossly normal Neck: normal inspection, supple, full range of motion Respiratory: normal breath sounds, chest non-tender, no respiratory distress Cardiovascular: regular rate/rhythm Gastrointestinal: normal bowel sounds, soft, non-tender, no organomegaly Back: normal inspection, normal range of motion Extremities: normal inspection, normal capillary refill, normal range of motion, no edema Neurologic/Psych: no motor/sensory deficits, awake, oriented x 3, normal mood/ affect, projection printer II-XII nml as tested Skin: intact, normal color, warm/dry Last 24 Hrs of Labs/Andrew: Laboratory Tests 01/02/1710: Hemoglobin A1c Pending 01/02/1710: Triglycerides 107, Cholesterol 170, LDL Cholesterol, Calc 100, HDL Cholesterol 49, Cholesterol/HDL Ratio 3, TSH 0.693, CBC w Diff NO MAN DIFF REQ, RBC 5.82, MCV 86.0, MCH 28.5, RDW 12.4, MPV 7.4, Gran % 72.5, Lymphocytes % 20.2 L, Monocytes % 5.9, Eosinophils % 1.1, Basophils % 0.3, Absolute Granulocytes 6.6 H, Absolute Lymphocytes 1.8, Absolute Monocytes 0.5, Absolute Eosinophils 0.1, Absolute Basophils 0, PUBS MCHC 33.2 Assessment/Plan Assessment/Plan 26-year-old male with polysubstance abuse including heroin and cocaine and active tobacco use. He is here with psychiatric complaints. He is open to the idea of HIV testing and hepatitis testing so I will order an HIV panel and hepatitis panel for the a.m. I spoke to him at length about tobacco cessation but he doesn't want to contemplate giving up now. He says that he understands that he needs to have a primary and will follow up with the primary care physicain on discharge for outpatient medical follow-up. Given the cocaine in the urine, do not use beta blockers and follow closely. Problem List: 1. Bipolar disorder 2. Polysubstance abuse Consult Acknowledgment - Thank you for your consult request.
[2017-01-02 12:21] VITALS: BP 134/65
[2017-01-02 16:23] VITALS: BP 138/82
[2017-01-02 19:49] VITALS: BP 138/88
[2017-01-03 07:40] VITALS: BP 146/85
[2017-01-03 12:12] VITALS: BP 122/76
--- NOTE | 2017-01-03 14:27 | SOCIAL WORKER TX PLAN PSYCH ---
Treatment Plan - Please Document: - Evidence that there is ongoing collaboration between - the patient and the interdisciplinary team, - including the patient's active participation and - responsibility for engaging in the treatment regimen, - and that the treatment plan is individualized and - relevant to the patient's conditions. - Treatment plan should reflect documentation indicating - that all active therapeutic efforts are included. Strengths/Capabilities: The patient has a supportive mother and stable living. Physical Limitations (Interventions): During the evaluation, the patient was complaining of muscle cramps, Dr. Chu was made aware. Patient Identified Trmt Goals: "I need to organize my thoughts and get home." Discharge Plan: IOP Problem/Goals #1 Problem #1: Yue Goal (Short Term): Explore feelings and thoughts about self, his or her own abilities, and future plans. Explore mood state, level of energy, level of control over thoughts, and sleeping pattern. Refer for psychiatric evaluation for medication need, and to assess hospitalization need to stabilize mood and energy. Monitor taking of psychotropic medications as directed. Encourage trust in the therapy relationship by sharing fears about dependency, loss, and abandonment. Accomplish mood stability, having slower reaction with anger, less expansive, and being more socially appropriate and sensitive. Encourage expression of grief, fear, and anger regarding real or imagined losses in life. Differ between real and imagined losses, rejections, and abandonment. Accept the level of low self esteem and fear of rejection that underlies the behavior. Identify and list the causes for the low self esteem and abandonment fears. Learn to be less agitated and distracted, and be able to sit quietly and calmly for 30 minutes. Agree to sleep about 5 hours or more per night. Increase control over thoughts and a slower thinking process. Increase ability to stay focused on a single activity to completion. Increase an understanding that behavior and judgment are under poor control during manic phase or episode. Increase acceptance of the need for ongoing supportive treatment and medication to reduce or eliminate destructive, manic swings. Goal (Homeworker): Lower level of psychic energy and return to normal activity levels. Increase good judgment, stable mood, and goal directed behavior. Reduce agitation, impulsivity, and pressured speech Increase sensitivity to the consequences of behavior and having more realistic expectations. Explore underlying feelings of guilt, fears of rejection, low self esteem, dependency, and abandonment. Accomplish controlled behavior, moderated mood, and thought process through psychotherapy and medication. Interventions: Reinforce impulse control by using role playing, behavioral rehearsal, or role reversal to increase sensitivity to negative consequences of behavior. Listen carefully for expressions of hostility while setting limits on aggressive or impulsive behavior. Place limits on any manipulation or acting out behavior, by making clear rules and establishing clear consequences for breaking rules. Allow for structure to focus the patient's thoughts and actions, and, by regulating the direction of conversation and setting plans for behavior. Reinforce slower speech and more careful focused thought process. Modalities: Encourage groups, education on mood stabalization, provide CBT treatment, family meeting. DSM5/PS Stressors/Medical Prob Diagnosis' (DSM 5, Stressors, Medical): F29 Unspecified Schizophrenia Spectrum and other Psychotic Disorder. R/O Bipolar Disorder with Psychotic features. Medical: Unremarkable Stressors: Financial, unemployment, family issues Current GAF: 25 Treatment Team - Responsibilities of members of the treatment team include: - Medication Management- MD or WASTE WATER OR WATER PLANT OPERATOR - Medication Administration and Monitoring- Nurse - Group Therapy- Occupational Therapist - 1:1 Therapy,Disch Planning,family involvement-Payroll Bookkeeper
[2017-01-03] MEDS ORDERED: ZYPREXA ZYDIS PO (15:03)
[2017-01-03] MEDS ORDERED: NICOTINE PATCH1 EAC3 TOP (15:03)
[2017-01-03] MEDS ORDERED: TRAZODONE HCL50 M1 PO (15:03)
[2017-01-03] MEDS ORDERED: ZYPREXA ZYDIS5 M1 PO (15:03)
[2017-01-03] MEDS ORDERED: GABAPENTIN300 M2 PO (15:03)
[2017-01-03] MEDS ORDERED: HYDROXYZINE HCL50 M1 PO (15:03)
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
--- NOTE | 2017-01-03 15:32 | SOCIAL WORKER PROG NOTE PSYCH ---
Social Work Progress Note Progress Note Patient to discharge the hospital today. This underwriter mortgage loan met with patient for the first time today. Patient presented generally calm, logical and oriented to person place situation. Patient shared about his step fathers this past weekend and the desire to return home to be with his mother and prepare for the wake/. Patient denied any thoughts to hurt himself or others and reported that he recognizes the need to continue on Zyprexa. Patient reports that he has been on Zyprexa in the past for long periods of time and did find it beneficial. He reports experiencing calmer thoughts and rational thinking when on Zyprexa. Patient has agreed to continue on Zyprexa and will attend [facility]. Together we called patients mother, Vika Combs, who confirmed that she would like patient to return home this evening as family is coming in to town tomorrow for his step fathers wake. Patient does report continued auditory/visual hallucinations but reports that he has experienced these throughout his entire life and does not find them harmful and they are not command in nature. Patient denies SI/HI at present and has intake at [facility] on Tuesday01/05/17 @ 10:15am.
--- NOTE | 2017-01-03 15:44 | DISCHARGE SUMMARY REPORT-PSYCH ---
Visit Information Visit Dates/Diagnosis' Admission Date: 01/01/17 Discharge Date: 01/03/17 Reason for Admission: Patient brought to the ED, by ambulance, on a PEER. The patient presented as anxious, fidgety with extreme mood lability, ranging from laughing, to crying, to screaming, to staring blankly. The patient has a long history of mental health issues and subsequent treatment, however is not currently in any treatment. Psy Discharge Primary Diag: Bipolar Disorder Psy Discharge Secondary Diag: Polysubstance abuse, had been in remission for 4 months, recently restarted prior to admission. Hospital Course Significant Lab Findings: Lab TSH 0.693 uIU/mL 01/02/17 0610 HIV 1&2 Ab Western Blot NONREACTIVE 01/03/17 0624 Urine Cannabis Screen > 80.00 NG/ML H 01/01/17 0520 Urine Cocaine Screen > 1000 NG/ML H 01/01/17 0520 Urine Opiates Screen > 4000.00 NG/ML H 01/01/17 0520 Course Complications: None. Consultations: Patient was seen for admission History and Physical by Dr. Cespedes. Please refer to her note for additional information. Allergies: Coded Allergies: No Known Allergies (03/20/16) Hospital Course/TX Response: The patient was monitored on the unit for safety, mood stability, and polysubstance withdrawal. He participated in multi-modal treatments on the unit. He was medicated with olanzapine for clear thoughts and mood stability, trazodone at bedtime for sleep. Today, the day of discharge, was my first time meeting with the patient. I met the patient along with social studies department chair Anna. Patient presents as calm, cooperative and logical. He was informed that his stepfather, who raised him, had just unexpectedly . He is eager to return home to be with his mother, and extended family. During our visit this afternoon, we spoke on the phone with his mother, who is also eager to have him return home. She states that she believes he will be safe. Patient states today that he feels calm, has been able to collect his thoughts. States that he had been treated for many years for bipolar disorder, and that the only medication that has been successful has been Zyprexa. States he had stopped taking Zyprexa this past August, when his prescription ran out. Although he has a history of substance abuse, states that he had been clean since last August. Just prior to being brought to the hospital, he states that he relapsed in response to unusual and harsh statements made by his biological father, from whom he is estranged. He had spent some time in [place] hoping to reconnect with his biological father, but this has proven unsuccessful. In consultation with our team, it was decided that we believe the patient is safe today for discharge, and that it is reasonable for him to be with his family during this difficult time after his stepfathers untimely . This afternoon the patient and I discussed backup plans, he stated that should he feel the need, he would return to the emergency department. In the meanwhile he intends to follow up at [facility]. He has made a commitment to continue taking his medications, especially Zyprexa, and to maintain sobriety. Although he states he is feeling sad, he denies depression or anxiety. Depression:0/10; Anxiety:0/10 (with 10 the worst.) Denies suicidal ideation, homicidal ideation, visual hallucinations, paranoid ideation. Patient states and also believes that he will not kill himself, nor will he harm anyone else. He reports that he hears voices, but not as hallucinations. He states that both of his biological parents also have the "ability." "We are spiritual people, my mother and father both have this ability. Drugs enhance the ability. " Speech is well articulated, goal-directed, average in rate, volume and tone. Calm, cooperative, pleasant. Alert and oriented 3. Logical. The patient understands the risks/benefits/side effects of the medication and is agreeable to continue taking them. Patient reports tolerating his medications, without complaint. States he feels safe and ready for discharge. Discharge HBIPS - Tobacco Use Treatment Offered Post DC Medications Offered: Script Given-See Med List Post DC Tobacco Treatment Plan: [facility] Tobacco Tx Pgm Program Appt Date: 01/12/17 Program Appt Time: 1600 - EtOH/Drug Use D/O Treatment Offered Post DC Medications Offered: Ref Med EtOH/Drug Use D/O Post DC EtOH/SubAbuse TX Plan: [facility] SubAbuse/Dual IOP Program Appt Date: 01/05/17 Program Appt Time: 1015 Metabolic Screening - Screen if on a Neuroleptic Medication - Metabolic screening should include: - Blood Pressure, BMI, Glucose or Hgb A1c, & a - Lipid profile from within the past 365 days. Metabolic Screening () Not Applicable, patient not on a neuroleptic. OR ([x]) Patient on a neuroleptic(s) . Enter below results for Glucose or Hemoglobin A1C, and lipid panel if obtained during the last 365 days. BMI: 21.700 Blood Pressure: 139/89 Laboratory Results (If applicable): Lab Cholesterol 170 MG/DL 01/02/17 0610 Cholesterol/HDL Ratio 3 % 01/02/17 06 HDL Cholesterol 49 mg/dL 01/02/17 0610 Hemoglobin A1c 5.3 % 01/02/17 07 LDL Cholesterol, Calc 100 mg/dL 01/02/17 0610 TSH 0.693 uIU/mL 01/02/17 06 Triglycerides 107 mg/dL 01/02/17 06 Discharge Instructions General Discharge Information Discharge Medications: Discharge Medications- (Dose, route, freq, indication): START taking these NEW Home Medications: Nicotine (Nicotine Dose: On the skin, DAILY for Qty: 30 Called in to Patch) 21 MG/24 HOUR 21 Milligram SMOKING CESSATION Refills: 0 Pharm 1 PATCH.TD24 Last Taken:01/03/17 Time:10a Gabapentin Dose: ORAL, THREE TIMES DAILY Qty: 42 Called in to (Gabapentin) 300 MG 300 Milligram for ANXIETY Refills: 0 Pharm 1 CAPSULE Last Taken:01/03/17 Time:1pm Trazodone HCl Dose: ORAL, AT BEDTIME as Qty: 14 Called in to (Trazodone HCl) 50 50 Milligram needed for SLEEP Refills: 0 Pharm 1 MG TABLET Last Taken:01/02/17 Time:10pm Olanzapine (Zyprexa Dose: ORAL, AT BEDTIME for Qty: 14 Called in to Zydis) 10 MG 10 Milligram CLEAR THOUGHTS Refills: 0 Pharm 1 TAB.RAPDIS Last Taken:01/02/17 Time:10p Olanzapine (Zyprexa Dose: ORAL, DAILY for CLEAR Qty: 14 Called in to Zydis) 5 MG 5 Milligram THOUGHTS Refills: 0 Pharm 1 TAB.RAPDIS Last Taken:01/03/17 Time:0800 Hydroxyzine HCl Dose: ORAL, THREE TIMES DAILY Qty: 42 Called in to (Hydroxyzine HCl) 50 50 Milligram as needed for ANXIETY Refills: 0 Pharm 1 MG TABLET Last Taken:01/03/17 Time:1pm 1: [id number], [address], [place] [id number] Your Preferred Pharmacy [id number] [address], [place] [address] Multiple Neuroleptics: ([x]) Not Applicable OR Document below three failed attempts at monotherapy, or a plan to taper to monotherapy, or augmentation of Clozapine. () Patient's Diet: Regular Patient's Activity: No restrictions. DC Disposition: Patient is returning to his home where he lives with his mother. His step-father , with whom he had also lived, has just . He is being discharged at this time to be with his family, and [facility]. He states he will follow up at [facility]. Recommendations: Maintain sobriety. Take medications as directed. Follow up at [facility]. Referred To: [facility] Service Date: 01/05/17 [address] [id number] Notes: Intake at IOP: [address] 01/05/17 @ 10:15am Copies To: [facility]
[2017-01-03 15:52] VITALS: BP 139/89
== END 2017-01-03 16:55 | DRG 753 ==
LOC: ENRESERVTM → ENRESERVDT → ERH 02:30 → ENPENDDIS 09:52 → CP SOUTH 09:52 → ERHI 09:52 → CP SOUTH 13:53
PROVIDERS: Pediatrics; Student in an Organized Health Care Education/Training Program; ADMIT Psychiatry & Neurology Psychiatry
DX: F31.9 Bipolar disorder, unspecified (principal); F19.10 Other psychoactive substance abuse, uncomplicated
CPT/HCPCS: 36415; 80307; 87389; 93005; 93010; 96372; 99291; G0480; J3490

== ENCOUNTER 2017-01-24 01:54 | Emergency (ER) | payer OTHER ==
[~2017-01-24] VITALS: Ht 172.7 cm; Wt 59.0 kg
[~2017-01-24 01:54] MED LIST changes: +GABAPENTIN300 M2 PO; +HYDROXYZINE HCL50 M1 PO; +NICOTINE PATCH1 EAC3 TOP; +TRAZODONE HCL50 M1 PO; +ZYPREXA ZYDIS PO; +ZYPREXA ZYDIS5 M1 PO
--- NOTE | 2017-01-24 02:34 | ED PSYCHIATRIC COMPLAINT ---
History of Present Illness General Chief Complaint: Psychiatric Related Complaint Stated Complaint: BIBA FOR EVAL PSYCH Source: patient Exam Limitations: no limitations Vital Signs & Intake/Output Vital Signs & Intake/Output Vital Signs Date Time Temp Pulse Resp B/P Pulse O2 O2 Flow FiO2 Ox Delivery Rate 01/24 0637 96.2 72 16 92/54 97 Room Air 01/24 0213 Room Air 01/24 0200 97.9 103 18 149/79 97 Room Air Allergies Coded Allergies: No Known Allergies (03/20/16) Reconcile Medications Gabapentin 300 MG CAPSULE 300 MG PO TID ANXIETY Hydroxyzine HCl 50 MG TABLET 50 MG PO TID PRN ANXIETY Nicotine (Nicotine Patch) 21 MG/24 HOUR PATCH.TD24 21 MG TOP DAILY SMOKING CESSATION Olanzapine (Zyprexa Zydis) 10 MG TAB.RAPDIS 10 MG PO AT BEDTIME CLEAR THOUGHTS Olanzapine (Zyprexa Zydis) 5 MG TAB.RAPDIS 5 MG PO DAILY CLEAR THOUGHTS Trazodone HCl 50 MG TABLET 50 MG PO AT BEDTIME PRN SLEEP Triage Note: PT BIBA REQUESTING DETOX FROM CRACK COCAINE AND HEROIN. LAST USED APPROX 4 HRS EVS MANAGER. PT CALM AND COOPERATIVE UPON ARRIVAL. SECURITY AT BEDSIDE FOR WANDING AND PT CHANGED INTO HOSPITAL BLUE PAPER SCRUBS. Triage Nurses Notes Reviewed? yes Onset: Gradual Duration: week(s):, waxing and waning Timing: recent history Severity: moderate Associated Symptoms: anxiety, pt related suicidal thoughts to police... he denies in ED. HPI: 26 yo gentleman h/o bipolar disorder presents with increased depression and suicidality. He notes that he hears auditory hallucinations. "There are 6 or 7 people in my head... They talk about me... call me bad things... tell me how bad I am." He states that his father 3 weeks ago and since then he has started snorting heroin, "usually just a bag or two a day" and doing crack. (JA WALLACE,CYRIL Dean) Past History Travel History Traveled to [place] past 21 day No Medical History Any Pertinent Medical History? see below for history Neurological: NONE EENT: NONE Cardiovascular: NONE Respiratory: NONE Gastrointestinal: NONE Hepatic: NONE Renal: NONE Musculoskeletal: NONE Psychiatric: anxiety, bipolar disease Endocrine: NONE Blood Disorders: NONE Cancer(s): NONE PRIMARY SUBSTANCE ABUSE COUNSELOR/Reproductive: NONE History of MRSA: No History of VRE: No History of CDIFF: No Surgical History Surgical History: non-contributory Psychosocial History Who do you live with Mother What is your primary language Estonian Tobacco Use: Refused to answer ETOH Use: 6 Illicit Drug Use: cocaine, heroin Family History Hx Contributory? No (JA WALLACE,CYRIL Dean) Review of Systems Review of Systems Constitutional: Reports: no symptoms. EENTM: Reports: no symptoms. Respiratory: Reports: no symptoms. Cardiovascular: Reports: no symptoms. GI: Reports: no symptoms. Genitourinary: Reports: no symptoms. Musculoskeletal: Reports: no symptoms. Skin: Reports: no symptoms. Neurological/Psychological: Reports: no symptoms. Hematologic/Endocrine: Reports: no symptoms. Immunologic/Allergic: Reports: no symptoms. All Other Systems: Reviewed and Negative (JA WALLACE,CYRIL Dean) Physical Exam Physical Exam General Appearance: well developed/nourished, mild distress Head: atraumatic Eyes: Bilateral: PERRL, EOMI. Ears, Nose, Throat: normal pharynx, normal ENT inspection, hearing grossly normal Neck: normal inspection, supple Respiratory: normal breath sounds Cardiovascular: regular rate/rhythm Gastrointestinal: soft, non-tender Extremities: normal range of motion Neurological/Psychiatric: no motor/sensory deficits, awake, oriented x 3 Appearance/Memory/Insight: disheveled, impaired insight Behavoir/Eye Contact/Speech: cooperative Thoughts/Hallucinations: auditory hallucinations Skin: intact, normal color, warm/dry SAD PERSONS SAD PERSONS Response Value Male Sex? yes 1 Depression/Hopelessness? yes 2 Excessive Ethanol/Drug Use? yes 1 Rational Thinking Loss? yes 2 Social Support? has no support 1 Total 7 SAD PERSONS Done? yes (JA WALLACE,CYRIL Dean) Progress Differential Diagnosis: bipolar vs polysubstance abuse vs other. Plan of Care: Orders Procedure Date/time Status Regular Diet 01/24 B Active Continuous Observation Monitor 01/24 234 Active URINE DRUG SCREEN FOR ER ONLY 01/24 234 Complete ETHANOL 01/24 234 Complete COMPREHENSIVE METABOLIC PANEL 01/24 234 Complete CBC WITHOUT DIFFERENTIAL 01/24 234 Complete EKG 01/24 234 Active ED CRISIS PSYCH CONSULT 01/24 234 Active Laboratory Tests 01/24/17 0257: Urine Opiates Screen > 4000.00 H, Methadone Screen < 40, Barbiturate Screen < 60, Ur Phencyclidine Scrn < 6.00, Amphetamines Screen < 100, U Benzodiazepines Scrn < 85, Urine Cocaine Screen > 1000 H, Urine Cannabis Screen < 5.00 01/24/17 0243: Anion Gap 12, Estimated GFR > 60, BUN/Creatinine Ratio 13.3, Glucose 114 H, Calcium 9.5, Total Bilirubin 0.4, AST 34, ALT 36, Alkaline Phosphatase 73, Total Protein 7.3, Albumin 4.5, Globulin 2.8, Albumin/Globulin Ratio 1.6, CBC w Diff MAN DIFF ORDERED, RBC 4.84, MCV 86.6, MCH 28.5, RDW 12.4, MPV 7.8, Gran % 57.4, Lymphocytes % 35.3, Monocytes % 5.3, Eosinophils % 1.7, Basophils % 0.3, Absolute Granulocytes 6, Segmented Neutrophils 52, Band Neutrophils 2, Absolute Lymphocytes 3.8 H, Lymphocytes 38, Monocytes 5, Absolute Monocytes 0.6, Eosinophils 3, Absolute Basophils 0, Platelet Estimate ADEQUATE, Normocytic RBCs VERIFIED, Normochromic RBCs VERIFIED, PUBS MCHC 32.9 L, Serum Alcohol < 10.0 Initial ED EKG: normal axis, normal intervals, normal p-waves, normal QRS complex, normal sinus rhythm Hand-Off Endorsed To: NALINI JONAS MD Endorsed Time: 0700 Pending: consult (JA WALLACE,CYRIL Dean) Comments: Patient has been seen and evaluated by airport operations coordinator. Patient will follow up with IOP on Tuesday. (NALINI JONAS MD) Departure Departure Condition: Stable Clinical Impression Primary Impression: Bipolar disorder Secondary Impressions: Polysubstance abuse Referrals: UNKNOWN (PCP/Family) Departure Forms: Customer Survey General Discharge Information (CYRIL PERES MD) Departure Disposition: HOME OR SELF CARE Additional Instructions: Follow-up as per recommendations by the airport operations coordinator and with IOP Tuesday. (NALINI JONAS MD)
[2017-01-24 03:07] LABS: ABSOLUTE BASOPHIL COUNT 0 /CUMM (0.0-0.2); ABSOLUTE GRANULOCYTE CT 6 /CUMM (1.4-6.5); ABSOLUTE LYMPH COUNT 3.8 /CUMM (1.2-3.4); ABSOLUTE MONOCYTE COUNT 0.6 /CUMM (0.10-0.60); BASOPHIL % 0.3 % (0.0-2.0); EOSINOPHIL % 1.7 % (0-5); GRANULOCYTE % 57.4 % (42.2-75.2); MEAN CORPUSCULAR HGB 28.5 PG (27.0-31.0); MEAN CORPUSCULAR HGB CONC 32.9 G/DL (33.0-37.0); MEAN CORPUSCULAR VOLUME 86.6 FL (80.0-94.0); MEAN PLATELET VOLUME 7.8 FL (7.4-10.4); PLATELET COUNT 256 /CUMM (130-400); RBC DISTRIBUTION WIDTH 12.4 % (11.5-14.5); RED BLOOD CELL CT 4.84 /CUMM (4.70-6.10); WHITE BLOOD CELL COUNT 10.7 /CUMM (4.8-10.8)
[2017-01-24 03:10] LABS: HEMATOCRIT 41.9 % (42-52)
--- NOTE | 2017-01-24 11:57 | ED PSYCH CRISIS CONSULTATION ---
Crisis Consult Basic Assessment Date of Consult: 01/24/17 Responsible Person/Accompanied By: self Insurance Authorization: Insurance #1: Insurance name: [facility] [employer] [employer] Phone number: Policy number: [id number] Group number: Authorization number: ED Provider: Patient's ED Provider: CYRIL PERES MD Primary Care Physician: Patient's PCP: UNKNOWN PCP's Phone Number: Current Psychiatrist: none Chief Complaint: Psychiatric Related Complaint Patient's Quote: i'm not suicidal. I never said i was. Present Illness: Pt is a 26yo male who was brought to the ED on a PEER. PEER identifies pt has been using heroin and crack. It also reports that pt is hearing voices since age 16. Additionally, it stated that pt's father dies 3 weeks ago and pt has been having erratic mood swings, increased drug use and depression. In the ED MD cristal , it identified that pt made a suicidal statement to police but denies SI in the ED. On the PEER there is no mention of pt having any SI. Pt continuously denies SI to ED MD, Nurses, and Crisis. "I never said I was suicidal." Pt admits that he does hear voices that are derogatory in nature, but not command. Pt was not able to elaborate on the content of the voices. He reports that he has been having the voices since age 16. Pt expressed that maybe the police misunderstood him about the SI as it is not he who is suicidal, but he worries about his Mom being suicidal and that makes him feels stressed. Pt explains that he called the police and had them bring him to the ED because he was hoping that they could eval his psych meds and make changes due to the auditory hallucinations. It was explained to pt that Psych meds changes can not be done in the ED as the doctor will not follow him for tx. Offered pt an inpt psych admit and he declined. Offered him IOP identifying to him that he did not follow-up in IOP as recommended following his CPS discharge last month. Pt identified that he has not been able to make it to IOP due to all the stressors going on in his life. He explains that his father 3 weeks ago and he and his Mother are now getting evicted from their home. He and his mom have no other supports other than one another. Pt informed that sometimes his mom says she wants to , but he knows that she would not kill herself, but he still worries about her. Pt reports that he just started a new job and that he and his Mom have an appointment with housing and medical social worker. Pt admits that he relapsed 2 weeks ago on crack and heroin. He has been smoking crack 1-2 times daily and snorting heroin 1-3 times daily. Advised pt to discontinue use explaining that this could make his sx worse. Pt is agreeable to going to [facility] and using [employer] for transportation. Reminded pt that he needs to stay sober to be successful in [facility]. Crisis spoke to Pt's motherVika who confirmed that pt did not make any suicidal statements, and that he called the police to bring him to the ED because he felt that his current meds were not helping. Explained to her that psych meds can not be adjusted in the ED rather only in inpt psych tx or out pt tx. Told her that inpt was offered to pt, but he declined, but would like to go to [facility]. Mom stated she is agreeable to that and expressed that she has no safety concerns and will come to pick him up. Crisis also addressed pt's concern about her expressing SI. Mom did admit that she has said that because she is so overwhelmed and stressed, but that it was just venting and that she would never kill herself as "I would never to that to my son, and I am Mormon and don't want to go to hell. I understand that I should probably not say things like that in front of him, because he does not understand that I don't mean it." Case reviewed with Dr. Chaney of psychiatry who approved discharge to follow-up in [facility]. Pt has an intake scheduled for this tuesday at 10am in [facility]. Pt was also provided with the number for [facility]. Patient's Address: [address] [place] [address] Other Phone Number: Who Do You Live With? Mother Family/Informants Interviewed: Mom Allergies - Coded Allergies: No Known Allergies (03/20/16) Current Medications - Scheduled Medications Gabapentin 300 MG CAPSULE 300 MG PO TID ANXIETY #42 TAB Prescribed by AILEEN VALERIO APRN on 01/03/17 Nicotine (Nicotine Patch) 21 MG/24 HOUR PATCH.TD24 21 MG TOP DAILY SMOKING CESSATION #30 PATCH Prescribed by AILEEN VALERIO APRN on 01/03/17 Olanzapine (Zyprexa Zydis) 10 MG TAB.RAPDIS 10 MG PO AT BEDTIME CLEAR THOUGHTS #14 TAB Prescribed by AILEEN VALERIO APRN on 01/03/17 Olanzapine (Zyprexa Zydis) 5 MG TAB.RAPDIS 5 MG PO DAILY CLEAR THOUGHTS #14 TAB Prescribed by AILEEN VALERIO APRN on 01/03/17 Scheduled PRN Medications Hydroxyzine HCl 50 MG TABLET 50 MG PO TID PRN ANXIETY #42 TAB Prescribed by AILEEN VALERIO APRN on 01/03/17 Trazodone HCl 50 MG TABLET 50 MG PO AT BEDTIME PRN SLEEP #14 TAB Prescribed by AILEEN VALERIO APRN on 01/03/17 Laboratory Results: Laboratory Tests 01/24/17 0257: Urine Opiates Screen > 4000.00 H, Methadone Screen < 40, Barbiturate Screen < 60, Ur Phencyclidine Scrn < 6.00, Amphetamines Screen < 100, U Benzodiazepines Scrn < 85, Urine Cocaine Screen > 1000 H, Urine Cannabis Screen < 5.00 01/24/17 0243: Anion Gap 12, Estimated GFR > 60, BUN/Creatinine Ratio 13.3, Glucose 114 H, Calcium 9.5, Total Bilirubin 0.4, AST 34, ALT 36, Alkaline Phosphatase 73, Total Protein 7.3, Albumin 4.5, Globulin 2.8, Albumin/Globulin Ratio 1.6, CBC w Diff MAN DIFF ORDERED, RBC 4.84, MCV 86.6, MCH 28.5, RDW 12.4, MPV 7.8, Gran % 57.4, Lymphocytes % 35.3, Monocytes % 5.3, Eosinophils % 1.7, Basophils % 0.3, Absolute Granulocytes 6, Segmented Neutrophils 52, Band Neutrophils 2, Absolute Lymphocytes 3.8 H, Lymphocytes 38, Monocytes 5, Absolute Monocytes 0.6, Eosinophils 3, Absolute Basophils 0, Platelet Estimate ADEQUATE, Normocytic RBCs VERIFIED, Normochromic RBCs VERIFIED, PUBS MCHC 32.9 L, Serum Alcohol < 10.0 Past History Past Medical History Neurological: NONE EENT: NONE Cardiovascular: NONE Respiratory: NONE Gastrointestinal: NONE Hepatic: NONE Renal: NONE Musculoskeletal: NONE Psychiatric: anxiety, bipolar disease Endocrine: NONE Blood Disorders: NONE Cancer(s): NONE NEWS LIBRARIAN/Reproductive: NONE Past Surgical History Surgical History: non-contributory Psychosocial History Strengths/Capabilities: The patient has a supportive mother and is agreeable to follow-up in [facility] Physical Limitations (Interventions): none reported Psychiatric Treatment History Psych Treatment Psychiatric Treatment Yes Inpatient Treatment Yes Outpatient Treatment Yes Location of Treatment [facility], [facility], [facility] Reason for Treatment Bipolar, psychosis Dates of Treatment most recently Dec 2016 Response to Treatment variable Diagnosis by History: Bipolar Substance Use/Abuse History Drug Use/Abuse 1 Substances Used/Abused Yes Substance Used/Abused Crack Cocaine First Use relapsed 2 weeks ago Last Used last night How much used/taken 1-2 How often daily For how long relapsed 2 weeks ago Route of use smoke Drug Use/Abuse 2 Substances Used/Abused Yes Substance Used/Abused Heroin First Use relapsed 2 weeks ago Last Used last night How much used/taken 1-3 How often daily For how long relapsed 2 weeks ago Route of use snort Substance Abuse Treatment Substance Abuse Treatment Past Substance Abuse TX Yes Inpatient Treatment Yes Outpatient Treatment No Location of Treatment [facility] Reason for Treatment opiate and stim use Dates of Treatment Dec 2016 Response to Treatment relapsed Current Mental Status Mental Status Orientation: Person, Place, Situation Affect: Depressed, Sad Speech: WNL Neuro-vegetative: Sleep Disturbance Appearance Appearance- Dress/Hygiene: farily groomed, intermitent eye contact Behaviors Thought Process: WNL Thought Content: Auditory Hallucinations Memory: WNL Insight: WNL SI/HI Risk Assessment Past Suicidal Ideation/Attempts Yes Current Suicidal Ideation/Att No Past Homicidal Ideation/Att: No Current Homicidal Ideation/Attempts No Degree of Intent: None Risk Factors: age (under 24/over 65), high anxiety/distress, SA/MH hospitalized, substance abuse, male, limited support Lethality Ratin (mild) PTSD Checklist PTSD Done? patient declined ED Management Sitter: Yes Restraints: No DSM5/PS Stressors/Medical Prob Diagnosis' (DSM 5, Stressors, Medical): Bipolar with psychotic features f31.2, opiate use f11.20, stim use f14.20 Current GAF: 38 Departure Disposition Psych Medical Clearance Date: 01/24/17 Medically Cleared at: 1130 Time Started: 1130 Time Ended: 1230 Psychiatrist Consulted: Renetta Chaney MD Date Disposition Established: 01/24/17 Time Disposition Established: 1230 Plan for Disposition - Modality: IOP Facility: [facility] Follow-up Appt Date: 01/28/17 Follow-Up Appt Time: 1000 Rationale for Disposition: pt denies active SI, pt having non command AH and declines inpt , pt willing to attend IOP Referrals UNKNOWN (PCP/Family)
[2017-01-24 13:59] VITALS: BP 117/62
== END 2017-01-24 15:16 ==
LOC: ERH 01:54
PROVIDERS: Pediatrics
DX: F31.9 Bipolar disorder, unspecified (principal); F11.10 Opioid abuse, uncomplicated; F14.10 Cocaine abuse, uncomplicated; R44.0 Auditory hallucinations; F41.9 Anxiety disorder, unspecified
CPT/HCPCS: 80307; 93005; 93010; G0463; G0480

== ENCOUNTER 2017-02-17 04:20 | Emergency (ER) | payer OTHER ==
[~2017-02-17] VITALS: Ht 170.2 cm; Wt 54.4 kg
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
[2017-02-17 04:53] LABS: ABSOLUTE BASOPHIL COUNT 0 /CUMM (0.0-0.2); ABSOLUTE EOSINOPHIL COUNT 0.1 /CUMM (0.0-0.7); ABSOLUTE GRANULOCYTE CT 7.4 /CUMM (1.4-6.5); ABSOLUTE MONOCYTE COUNT 0.8 /CUMM (0.10-0.60); BASOPHIL % 0.3 % (0.0-2.0); EOSINOPHIL % 0.6 % (0-5); GRANULOCYTE % 65.4 % (42.2-75.2); HEMATOCRIT 44.3 % (42-52); MEAN CORPUSCULAR HGB 28.4 PG (27.0-31.0); MEAN CORPUSCULAR HGB CONC 33.2 G/DL (33.0-37.0); MEAN CORPUSCULAR VOLUME 85.5 FL (80.0-94.0); MEAN PLATELET VOLUME 7.5 FL (7.4-10.4); PLATELET COUNT 263 /CUMM (130-400); RBC DISTRIBUTION WIDTH 12.1 % (11.5-14.5); RED BLOOD CELL CT 5.18 /CUMM (4.70-6.10); WHITE BLOOD CELL COUNT 11.4 /CUMM (4.8-10.8)
[2017-02-17 10:34] VITALS: BP 120/80
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
== END 2017-02-17 10:35 ==
LOC: ERH 04:20
PROVIDERS: Pediatrics
DX: F31.60 Bipolar disorder, current episode mixed, unspecified (principal); F41.9 Anxiety disorder, unspecified
CPT/HCPCS: 80307; 93005; 93010; G0463; G0480

== ENCOUNTER 2017-03-10 01:50 | Emergency (ER) | payer OTHER ==
[~2017-03-10] VITALS: Ht 177.8 cm; Wt 68.0 kg
[2017-03-10 01:56] VITALS: BP 139/103
--- NOTE | 2017-03-10 01:58 | ED GENERAL ADULT ---
History of Present Illness General Chief Complaint: Altered Mental Status Stated Complaint: AMS Source: patient, family, old records Exam Limitations: no limitations Vital Signs & Intake/Output Vital Signs & Intake/Output Vital Signs Date Time Temp Pulse Resp B/P B/P Pulse O2 O2 Flow FiO2 Mean Ox Delivery Rate 03/10 0156 96.6 140 20 139/103 95 Room Air Allergies Coded Allergies: No Known Allergies (03/20/16) Reconcile Medications Gabapentin 300 MG CAPSULE 300 MG PO TID ANXIETY Hydroxyzine HCl 50 MG TABLET 50 MG PO TID PRN ANXIETY Nicotine (Nicotine Patch) 21 MG/24 HOUR PATCH.TD24 21 MG TOP DAILY SMOKING CESSATION Olanzapine (Zyprexa Zydis) 10 MG TAB.RAPDIS 10 MG PO AT BEDTIME CLEAR THOUGHTS Olanzapine (Zyprexa Zydis) 5 MG TAB.RAPDIS 5 MG PO DAILY CLEAR THOUGHTS Trazodone HCl 50 MG TABLET 50 MG PO AT BEDTIME PRN SLEEP Triage Nurses Notes Reviewed? yes HPI: Mom brought the patient in for evaluation of bizarre behaviors. Patient has a history of bipolar 1 but does not take any medications. Patient uses crack cocaine daily and heroin when he feels he needs to come down off the crack. He used Crack earlier today. Patient was cleaning the attic and 1 he came down he said he had been bitten by a spider and now cannot sit still. Mom gave him some cocaine to see if that would help settle him down and when it didn't she brought him into the emergency department for evaluation. PATIENT denies suicidal or homicidal ideations. Past History Medical History Any Pertinent Medical History? 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 No Review of Systems Review of Systems Constitutional: Reports: no symptoms. EENTM: Reports: no symptoms. Respiratory: Reports: no symptoms. Cardiovascular: Reports: no symptoms. GI: Reports: no symptoms. Genitourinary: Reports: no symptoms. Musculoskeletal: Reports: no symptoms. Skin: Reports: no symptoms. Neurological/Psychological: Reports: see HPI. Hematologic/Endocrine: Reports: no symptoms. Immunologic/Allergic: Reports: no symptoms. All Other Systems: Reviewed and Negative Physical Exam Physical Exam General Appearance: well developed/nourished, alert, awake, anxious, moderate distress Head: atraumatic, normal appearance Eyes: Bilateral: PERRL, EOMI. Ears, Nose, Throat: normal pharynx, normal ENT inspection, hearing grossly normal Neck: normal inspection, supple, full range of motion Respiratory: normal breath sounds, chest non-tender, no respiratory distress, lungs clear Cardiovascular: regular rate/rhythm, normal peripheral pulses Gastrointestinal: normal bowel sounds, soft, non-tender, no organomegaly Back: normal inspection Extremities: normal inspection, normal capillary refill, normal range of motion, no edema Neurologic/Psych: no motor/sensory deficits, awake, alert, oriented x 3, CHOREA- LIKE MOVEMENTS Skin: intact, normal color, warm/dry Lymphatic: no anterior cervical leena Core Measures ACS in differential dx? No CVA/TIA Diagnosis: No Severe Sepsis Present: No Septic Shock Present: No Progress Differential Diagnoses I considered the following diagnoses in my evaluation of the patient: [Anxiety, bipolar, electrolyte abnormality, drug intoxication] Plan of Care: Orders Procedure Date/time Status URINE DRUGS OF ABUSE 03/10 157 Active ETHANOL 03/10 157 Active COMPREHENSIVE METABOLIC PANEL 03/10 157 Active CBC WITHOUT DIFFERENTIAL 03/10 157 Active Initial ED EKG: none Comments: Patient wants to go home. Patient is not suicidal or homicidal. Patient is alert and oriented. Patient is competent to make his own decisions. His mother is at his bedside and she will take him home. Departure Departure Disposition: HOME OR SELF CARE Condition: Stable Clinical Impression Primary Impression: Cocaine abuse Referrals: UNKNOWN (PCP/Family) Departure Forms: Customer Survey General Discharge Information Critical Care Note Critical Care Note Critical Care Time: non-applicable Critical Care Note Critical Care Time: non-applicable UNKNOWN (PCP/Family) Departure Forms: Customer Survey General Discharge Information Critical Care Note Critical Care Note Critical Care Time: non-applicable
== END 2017-03-10 02:44 ==
LOC: ERH 01:50
DX: F14.10 Cocaine abuse, uncomplicated (principal)
CPT/HCPCS: 80307; 96372; G0480; J3490

== ENCOUNTER 2017-03-19 05:36 | Emergency (ER) | payer OTHER ==
[~2017-03-19] VITALS: Ht 167.6 cm; Wt 54.4 kg
--- NOTE | 2017-03-19 06:25 | ED SKIN/ALLERGY COMPLAINT ---
History of Present Illness General Chief Complaint: General Adult Stated Complaint: ?BUG BITES Source: patient Exam Limitations: no limitations Vital Signs & Intake/Output Vital Signs & Intake/Output Vital Signs Date Time Temp Pulse Resp B/P B/P Pulse O2 O2 Flow FiO2 Mean Ox Delivery Rate 03/19 0545 97.8 84 16 130/82 98 Room Air Allergies Coded Allergies: No Known Allergies (03/20/16) Reconcile Medications Gabapentin 300 MG CAPSULE 300 MG PO TID ANXIETY Hydroxyzine HCl 50 MG TABLET 50 MG PO TID PRN ANXIETY Nicotine (Nicotine Patch) 21 MG/24 HOUR PATCH.TD24 21 MG TOP DAILY SMOKING CESSATION Olanzapine (Zyprexa Zydis) 10 MG TAB.RAPDIS 10 MG PO AT BEDTIME CLEAR THOUGHTS Olanzapine (Zyprexa Zydis) 5 MG TAB.RAPDIS 5 MG PO DAILY CLEAR THOUGHTS Trazodone HCl 50 MG TABLET 50 MG PO AT BEDTIME PRN SLEEP Triage Note: PT BIBA C/O BUG BITES, PER EMS "I FEEL LIKE SOMETHINGS CRAWLING INSIDE OF ME". PT HAS BITED NOTED TO LEFT ARM, CHEST, STOMACH, AND RIGHT LEG. Triage Nurses Notes Reviewed? yes HPI: Patient presents for evaluation of bug bite that began gradually about one week ago after cleaning the attic. Patient states he has scattered lesions of his trunk and extremities that he has been picking at because of a history of bipolar disorder. Also been applying hydrogen peroxide without improvement. He states that he sees whitish bumps in the base of the wounds and he is concerned about parasites. He denies exposure to bedbugs or scabies. He has not tried any medications or lotions for the wounds. In addition patient has a history of bipolar disorder, schizophrenia, ADHD, PTSD and anxiety but he hasn't been able to follow-up with IOP or obtain medications because of lack of funds. Past History Travel History Traveled to [place] past 21 day No Medical History Any Pertinent Medical History? 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 No Review of Systems Review of Systems Constitutional: Reports: no symptoms. EENTM: Reports: no symptoms. Respiratory: Reports: no symptoms. Cardiovascular: Reports: no symptoms. GI: Reports: no symptoms. Genitourinary: Reports: no symptoms. Musculoskeletal: Reports: no symptoms. Skin: Reports: see HPI. Neurological/Psychological: Reports: no symptoms. Hematologic/Endocrine: Reports: no symptoms. Immunologic/Allergic: Reports: no symptoms. All Other Systems: Reviewed and Negative Physical Exam Physical Exam General Appearance: see below Comments: Gen.: Well-nourished, well-developed, no acute respiratory distress. Head: Normocephalic, atraumatic. Eyes: Normal inspection bilaterally Ears: Normal inspection bilaterally Nose: Normal inspection Throat/mouth : Moist mucosa Neck: Supple, full range of motion, no goiter Heart: Regular rate and rhythm Lungs: Quiet respirations Chest: Nontender, scattered excoriated superficial ulcerations and macules of the chest Back: Normal range of motion Abdomen: Soft, nontender, nondistended Extremities: Normal range of motion grossly, equal radial pulses, scattered superficial ulcerations and macules of the extremities with mild surrounding erythema and excoriation. No apparent parasites or burrows. The finger web spaces are spared. Neurologic: Cranial nerves grossly intact, speech is clear Skin: warm and dry Psychiatric: Calm, cooperative, no apparent delusions or hallucinations Progress Differential Diagnosis: furunculus, scabies, bedbugs, insect bites Plan of Care: Treatment for scabies followed by prednisone. Departure Departure Disposition: HOME OR SELF CARE Condition: Stable Clinical Impression Primary Impression: Dermatitis Referrals: UNKNOWN (PCP/Family) Additional Instructions: Treatment for scabies as prescribed, Medrol as prescribed. Follow-up with your primary care physician for reevaluation in one week. Do not apply hydrogen peroxide or any other heart chemical solvents to your skin lesions. Do not scratch pick or excoriate lesions. Return immediately if any concerns or sudden worsening. Thank you for choosing the [facility] for your care. It was a pleasure to serve you today. Asher Estrada M.D. [facility] Departure Forms: Customer Survey General Discharge Information Prescriptions: Current Visit Scripts Permethrin 1 HARMAN TOP ONCE #60 GM massage into skin from head to soles of feet one time, leave on for 8-14 hours then remove by thorough washing Methylprednisolone. (Medrol) 1 DP PO AD PRN rash #1 DP 6 on day 1 then reduce by one tablet daily until gone
[2017-03-19] MEDS ORDERED: MEDROL4 M2 PO (06:32)
[2017-03-19] MEDS ORDERED: PERMETHRIN60 GM TOP (06:32)
[2017-03-19 06:55] VITALS: BP 128/81
== END 2017-03-19 06:58 ==
LOC: ERH 05:36
DX: L30.9 Dermatitis, unspecified (principal)